=== PATIENT | female | born 1970 | race Native Hawaiian/Other Pacific Islander ===

== ENCOUNTER 2018-10-25 13:14 | Emergency (ER) | payer OTHER ==
[~2018-10-25] VITALS: Ht 170.2 cm; Wt 83.9 kg
[~2018-10-25 13:14] MED LIST: ADIPEX PO; HYDR25TA60 PO
[2018-10-25 14:27] LABS: PLATELET COUNT 249 K/uL (152-353)
[2018-10-25 14:37] LABS: POTASSIUM 4.6 mmol/L (3.6-5.2)
[2018-10-25 19:38] VITALS: BP 146/77; TEMP 98
== END 2018-10-25 19:38 | disposition short-term general hospital (02) ==
LOC: ED 13:14
PROVIDERS: Emergency Medicine
DX: K65.0 Generalized (acute) peritonitis (principal); K57.20 Diverticulitis of large intestine with perforation and abscess without bleeding
CPT/HCPCS: 36415; 80053; 82150; 83690; 85027; 96360; 96361; 96365; 96375; 99285; J1885; J2543; Q9963